=== PATIENT | male | born 1990 | race African-American/Black ===

== ENCOUNTER 2020-03-15 07:15 | Day surgery (SDC) | payer OTHER ==
[~2020-03-15] VITALS: Ht 180.3 cm; Wt 158.8 kg
[2020-03-15 08:42] VITALS: BP 142/61
[2020-03-15 14:36] VITALS: BP 124/72
== END 2020-03-15 14:25 | disposition home or self-care (01) ==
LOC: GI 07:15
PROVIDERS: ATTEND Internal Medicine Gastroenterology
DX: I85.00 Esophageal varices without bleeding (principal); K29.90 Gastroduodenitis, unspecified, without bleeding; B19.20 Unspecified viral hepatitis C without hepatic coma; K25.9 Gastric ulcer, unspecified as acute or chronic, without hemorrhage or perforation; F32.9 Major depressive disorder, single episode, unspecified; F41.9 Anxiety disorder, unspecified; E66.9 Obesity, unspecified; Z68.42 Body mass index [BMI] 45.0-49.9, adult; Z79.82 Long term (current) use of aspirin
CPT/HCPCS: 43235; J1200; J1610; J2250; J2310; J3010; J3490